=== PATIENT | male | born 1970 | race Caucasian/White ===

== ENCOUNTER 2019-03-29 09:45 | Emergency (ER) | payer MEDICARE ==
[~2019-03-29] VITALS: Ht 170.2 cm; Wt 75.0 kg
[2019-03-29] MEDS ORDERED: BUPRENORPHINE HC8 MG SL (10:07)
[2019-03-29 10:45] LABS: BASO % 0.3 % (0.0-2.0); EOS # 0.2 (0.0-0.7); EOS % 1.6 % (0-4.0); GRAN % 85.3 % (42.2-75.2); HEMATOCRIT 40.5 % (42.0-52.0); HEMOGLOBIN 12.8 g/dl (13.5-18.0); LYMPH # 0.8 (1.2-3.4); LYMPH % 7.6 % (20.0-51.0); MEAN CELL VOLUME 86 fl (80.0-100.0); MEAN CORPUSCULAR HEMOGLOBIN 27 pg (27.0-31.0); MEAN CORPUSCULAR HGB CONC 32 g/dl (33.0-37.0); MEAN PLATELET VOLUME 8.8 fl (7.4-10.4); MONO # 0.5 (0.1-0.6); MONO % 4.7 % (1.7-9.3); PLATELET COUNT 248 K/mm3 (130-400); RED BLOOD COUNT 4.71 M/mm3 (4.20-5.60); REDCELL DISTRIBUTION WIDTH-CV 13.9 % (11.5-14.5)
[2019-03-29 10:54] LABS: COLLECTION METHOD CLEAN CATCH
[2019-03-29 10:55] LABS: ALBUMIN 4.2 gm/dL (3.5-5.0); BILIRUBIN,TOTAL 0.6 mg/dL (0.0-1.0); C-REACTIVE PROTEIN 5.1 mg/dL (0.0-0.9); CALCIUM 9.8 mg/dL (8.4-10.2); CREATININE, serum 0.83 (0.66-1.25); POTASSIUM 4.3 mmol/L (3.4-5.0)
[2019-03-29 11:04] LABS: MUCOUS Present /lpf; PH 5 (5-8); SQUAMOUS EPITHELIAL None Seen /hpf; URINE APPEARANCE Clear; URINE BACTERIA Rare /hpf; URINE BILIRUBIN Positive (NEGATIVE); URINE BLOOD Negative (NEGATIVE); URINE COLOR Amber; URINE GLUCOSE Negative (NEGATIVE); URINE KETONE Negative (NEGATIVE); URINE LEUKOCYTE ESTERASE Negative (NEGATIVE); URINE NITRATE Negative (NEGATIVE); URINE PROTEIN(semi-quant) 1+ (NEGATIVE); URINE RBC 0-2 /hpf; URINE UROBILINOGEN Negative (NEGATIVE)
[2019-03-29 11:15] LABS: STREP SCREEN NEGATIVE
[2019-03-29] MEDS ORDERED: DYNAPEN500 MG PO (11:18)
[2019-03-29] MEDS ORDERED: DOXYCYCLINE 10100 MG PO (11:18)
[2019-03-29 13:57] VITALS: BP 102/69; PULSE 107; TEMP 98.8
== END 2019-03-29 14:01 | disposition home or self-care (01) ==
LOC: COL.ER 09:45
PROVIDERS: Emergency Medicine
DX: L02.413 Cutaneous abscess of right upper limb (principal); L03.115 Cellulitis of right lower limb; R50.9 Fever, unspecified
CPT/HCPCS: J2405; J7030